=== PATIENT | female | born 1995 ===

== ENCOUNTER 2025-07-07 09:00 | Day surgery (SDC) | payer OTHER ==
[2025-07-01 08:41] VITALS: BP 121/83
[2025-07-01 09:35] LABS: URINE APPEARANCE Clear; URINE BILIRRUBIN Negative (NEGATIVE); URINE BLOOD Moderate; URINE COLOR Yellow; URINE GLUCOSE Negative (NEGATIVE); URINE KETONE Negative (NEGATIVE); URINE LEUKOCYTE Negative; URINE NITRATE Negative; URINE PROTEIN Negative (NEGATIVE); URINE UROBILINOGEN 0.2 E.U./dl
[2025-07-01 09:38] LABS: BASO % 0.7 % (0.1-1.2); EOS # 0.18 (0.04-0.54); EOS % 2.4 % (0.7-7.0); LYMPH # 2.16 (1.18-3.74); LYMPH % 29.0 % (19.3-53.1); MEAN PLATELET VOLUME 12.70 fl (9.4-12.4); MONO # 0.43 (0.24-0.82); MONO % 5.8 % (4.7-12.5); NEUT # 4.62 (1.56-6.13); NEUT % 62.0 % (34.0-71.1); RED CELL DISTRIBUTION WIDTH 13.2 % (11.6-14.4)
[2025-07-01 09:40] LABS: URINE BACTERIA 19.1 uL (0.0-1933); URINE EPITHELIAL CELLS 3.2 uL (0.0-38.8)
[2025-07-01 10:10] LABS: URINE CAST 0.00 uL (0.0-1.40); URINE RBC 1.9 uL (0.0-20.8); URINE WBC 1.5 uL (0.0-23.2)
[2025-07-01 10:14] LABS: INR 1.04
[2025-07-01 10:15] LABS: ALT/SGPT 41.0 U/L (12-78); AST/SGOT 17.0 U/L (15-37); BILIRUBIN TOTAL 0.38 mg/dL (0.3-1.2); BUN CREA RATIO 11.0 (7.0-25.0); CREATININE SERUM 0.66 mg/dL (0.55-1.02); GFR 105.15; GLOBULINA 3.9 G/DL (2.4-3.5); GLUCOSE FASTING 90.0 mg/dL (65-100); OSMOLALITY SERUM 277.0 MOSM/KG (275-295)
[~2025-07-07] VITALS: Ht 170.2 cm; Wt 111.1 kg
[~2025-07-07 09:00] MED LIST: NORVASC2.5 MG PO; SINGULAIR10 MG PO; SYNTHROID125 MCG PO
[2025-07-07] MEDS ORDERED: CEFAZOLIN SODIUM 1,000 MG VIAL ONE (10:14)
[2025-07-07] MEDS ORDERED: KETO10TA2 PO (11:45)
[2025-07-07] MEDS ORDERED: MIRALAX17 GM PO (11:45)
[2025-07-07] MEDS ORDERED: TRAMADOL HCL50 MG PO (11:45)
[2025-07-07] MEDS ORDERED: TYLENOL ARTHRI650 MG PO (11:45)
[2025-07-07] MEDS ORDERED: SUGAMMADEX SODIUM 200 MG/2 ML VIAL IV ONE (12:47)
[2025-07-07] MEDS ORDERED: BUPIVACAINE HCL/MPF 0.5% 30ML VIAL ONE (12:47)
[2025-07-07] MEDS ORDERED: KETOROLAC TROMETHAMINE 30 MG VIAL ONE (13:48)
== END 2025-07-07 17:35 | disposition home or self-care (01) ==
LOC: CIR.AMB 09:00
PROVIDERS: ATTEND Surgery
DX: K81.1 Chronic cholecystitis (principal); Z91.018 Allergy to other foods; Z88.8 Allergy status to other drugs, medicaments and biological substances